=== PATIENT | female | born 1950 | race Caucasian/White ===

== ENCOUNTER 2017-12-06 20:33 | Inpatient (IN) | payer OTHER ==
[~2017-12-06] VITALS: Ht 165.1 cm; Wt 111.6 kg
--- NOTE | ~2017-12-06 | PR ---
[place], [place] PROGRESS NOTE NAME: ALBERTO EUGENE UNIT #: [id number] ROOM: 315 DOCTOR: FREDIS SCHMIDT MD BIRTHDATE: [birth year] DOS: 12/08/2017 CHIEF COMPLAINT: "I would still like to go home today." SUMMARY OF THE VISIT: The patient was interviewed once again as she was resting in bed. She engaged in conversation that was rather superficial. She continued to deny suicidal thoughts and minimized her overall situation. Nurses report that she needed a great deal of encouragement to leave her room and wanted to eat her meals alone in the group therapy room. She did not engage much in group activities. She did though, however, note that alcohol has become more problematic for her more so than she initially let on. MENTAL STATUS: She is alert and oriented. She did report improved sleep with the Remeron. She continues to report that the depression has really lifted and was minimizing its overall severity. She continues to deny suicidal thoughts, homicidal thoughts. There is no heriberto. There is no psychosis. Memory is intact. PLAN: I will maintain her Remeron at 15 mg at bedtime. I will offer her Campral 666 mg 3 times daily to decrease alcohol craving and have instructed [facility] to explore possible rehab, substance abuse treatment options for her post-discharge. We will have nursing staff greatly encourage her participation in groups in order to further assess her potential for lethality. We will then discharge when psychiatrically stable. FREDIS SCHMIDT MD CM:PNTRANS [id number] FREDIS SCHMIDT MD 12/08/17 1113 interface
--- NOTE | ~2017-12-06 | DS ---
[place], [place] DISCHARGE SUMMARY NAME: ALBERTO EUGENE UNIT #: [id number] ROOM: 315 DOCTOR: FREDIS SCHMIDT MD BIRTHDATE: [birth year] DOS: 12/09/2017 CHIEF COMPLAINT: "I really want to get out of here. I am not suicidal." HISTORY OF PRESENT ILLNESS: This is a 67-year-old black female who was sent here on an involuntary basis from [facility]. The patient had presented there after an apparent overdose of an unknown substance, most likely Coumadin. At that time, she was acutely intoxicated with alcohol and had reported to them that she had OD'ed in an attempt to kill herself because she no longer wished to live. She states that she has been very depressed and despondent and that this was occurring for weeks. On evaluation of the initial day in the hospital, she denied depressive symptoms, although she did state that she had been hospitalized once before at [facility] for depression. Most recently, she has been on Celexa and then she did later report that she did not feel that the Celexa was working as well for her as it had been in the past and that she was having some episodic sleep and appetite issues. She agreed to allow me to change her medications at that time. PAST MEDICAL HISTORY: Remarkable for history of major depression and alcohol abuse, unspecified. SUMMARY OF HOSPITAL COURSE: The patient was admitted to the unit where she had her Celexa and Restoril discontinued in lieu of Remeron 15 mg at bedtime. After the first dose of Remeron, the patient did notice an improvement in her sleep and appetite. She tolerated it well with no morning hangover or somnolence. She did allow me to start her on Campral 666 mg 3 times daily in an effort to get a hold of her substance abuse issue. She did report that this has become more problematic for her and she wanted to be able to stop that negative spiral of behavior because she saw that it was continuing to get her into bad places. The patient had a dramatic improvement with both medications, noticing that her mood improved and she voiced very positive plans for the future. She was anxious to return home and continue outpatient followup in the [facility]. She convincingly denied suicidal thoughts, homicidal thoughts or any self-injurious thoughts and convincingly denied any medication side effects. MENTAL STATUS AT DISCHARGE: The patient was alert and oriented to person, place, and time. Mood was strongly trending towards euthymia. Affect was appropriate. There are no symptoms of hypomania or heriberto. There were no overt auditory or visual hallucinations. No delusions, no paranoia. Short, intermediate, and long-term memory were fully intact. FINAL DIAGNOSES: Major depression, recurrent, severe, and alcohol abuse, unspecified. PLAN: All of her prescriptions have been E-scribed to the [facility] in [place]. She will have followup in the [place], [place] area. [place], [place] DISCHARGE SUMMARY NAME: ALBERTO EUGENE UNIT #: [id number] ROOM: 315 DOCTOR: FREDIS SCHMIDT MD BIRTHDATE: [birth year] FREDIS SCHMIDT MD CM:DISCHARG [id number] FREDIS SCHMIDT MD 12/09/17 1117 interface
--- NOTE | ~2017-12-06 | WRIGHTHP ---
[place], [place] PATIENT HISTORY AND PHYSICAL EXAM NAME: ALBERTO EUGENE UNIT #: [id number] ROOM: 315 DOCTOR: FREDIS SCHMIDT MD BIRTHDATE: [birth year] DOS: 12/07/2017 CHIEF COMPLAINT: "I really want to get out of here, I am not suicidal." HISTORY OF PRESENT ILLNESS: This is a 67-year-old black female who was sent here on an involuntary basis from [facility]. The patient had presented there after an apparent overdose of an unknown substance. At that time, she was acutely intoxicated with alcohol and had reported to them that she had OD'ed on unknown medications in an attempt to kill herself because she no longer wishes to be alive. She reported to them that she was very depressed and despondent and had been so for some weeks. On evaluation this morning, she now denies depressive symptoms, although she does state that she had been hospitalized once before at [facility] for depression. Most recently, she has been on Celexa. She is admitted now to rule out organic factors, to stabilize on medication, to rule out lethality, returning to the least restrictive environment when psychiatrically stable. MENTAL STATUS EXAMINATION: This morning, the patient is alert and oriented. She does appear somewhat depressed and there are some neurovegetative symptoms noted. She denies suicidal thoughts, however. There is no hypomania or heriberto. There are no auditory or visual hallucinations. No delusions, no paranoia. Short, intermediate, and long-term memory are intact. DIAGNOSIS: Major depression, recurrent, severe. PLAN: I will discontinue her Celexa and Restoril in lieu of Remeron, so I can decrease the risk of polypharmacy. I also think that the dual action of Remeron would be beneficial to her. Meanwhile, we will continue to engage her in therapy further attempting to elucidate whether or not she is a harm to self and others, we will discharge then when stable. FREDIS SCHIMDT MD CM:HISPHYS:PATIENT HISTORY AND PHYSICAL EXAMINATION [id number] FREDIS SCHMIDT MD 12/07/17946 interface
[2017-12-06] MEDS ORDERED: DIOVAN40 MG PO (20:55)
[2017-12-06] MEDS ORDERED: HYDROCHLOROTHIA25 M1 PO (20:55)
[2017-12-06] MEDS ORDERED: COUMADIN4 M2 PO (20:56)
[2017-12-06] MEDS ORDERED: COUMADIN10 M1 PO (20:57)
[2017-12-06] MEDS ORDERED: GOOD SENSE SLEE25 M1 PO (20:57)
[2017-12-06] MEDS ORDERED: COZAAR100 MG PO (20:58)
[2017-12-06] MEDS ORDERED: CELEXA20 MG PO (20:59)
[2017-12-06] MEDS ORDERED: RESTORIL15 MG PO (21:00)
[2017-12-06] MEDS ORDERED: PEPCID20 MG PO (21:01)
[2017-12-07 01:00] VITALS: BP 145/83
[2017-12-07] MEDS ORDERED: COUMADIN4 M2 PO (01:18)
[2017-12-07] MEDS ORDERED: LATANOPROST2.5 ML OU (02:09)
[2017-12-07 07:53] LABS: CHOLESTEROL 167 mg/dL (<200); HDL CHOLESTEROL 82 mg/dl (40-60); LDL CHOLESTEROL 67 mg/dL (9-159); TRIGLYCERIDES 88 mg/dl (<150); VLDL CHOLESTEROL 18 mg/dL (6-40)
[2017-12-07 08:23] VITALS: BP 137/74
[2017-12-07 20:00] VITALS: BP 134/75
[2017-12-08 08:17] VITALS: BP 120/61
[2017-12-08 08:29] LABS: INTERNATIONAL NORM RATIO 1.7 (2.0-3.5)
[2017-12-08 20:25] VITALS: BP 133/74
[2017-12-09 07:51] LABS: INTERNATIONAL NORM RATIO 1.3 (2.0-3.5)
[2017-12-09 08:22] VITALS: BP 128/60
[2017-12-09] MEDS ORDERED: VITAMIN D5000 UNI1 PO (10:35)
[2017-12-09] MEDS ORDERED: MIRTAZAPINE15 M2 PO (10:35)
[2017-12-09] MEDS ORDERED: ACAMPROSATE CA333 M1 PO (10:35)
== END 2017-12-09 18:26 | disposition home or self-care (01) | DRG 885 ==
LOC: 3N 20:33
PROVIDERS: Psychiatry & Neurology Psychiatry; Registered Nurse
DX: F33.3 Major depressive disorder, recurrent, severe with psychotic symptoms (principal); I82.409 Acute embolism and thrombosis of unspecified deep veins of unspecified lower extremity; R45.851 Suicidal ideations; Z68.41 Body mass index [BMI] 40.0-44.9, adult; F10.129 Alcohol abuse with intoxication, unspecified; E66.9 Obesity, unspecified; I10 Essential (primary) hypertension; E55.9 Vitamin D deficiency, unspecified; Z98.51 Tubal ligation status; Z88.1 Allergy status to other antibiotic agents; Z88.8 Allergy status to other drugs, medicaments and biological substances; Z79.899 Other long term (current) drug therapy